=== PATIENT | male | born 1965 | race Caucasian/White ===

== ENCOUNTER → 2016-11-09 | Outpatient (CLI) | payer BC ==
--- NOTE | 2016-11-09 14:03 | EST ---
DATE OF SERVICE: 11/09/2016 AGE: 51Y SEX: M HT: 73 WT: 260 lbs. Protocol Ceasar: Other: Stage: Dur. of Exercise: 7 minutes *Heart Rate Blood Pressure *Rest: 97 Rest: 140/91 * *Max. Achieved: 148 Maximum BP: 206/88 85% PMHR: 145 100% PMHR: 170 *METS: 7.8 INDICATIONS: Chest pain. MEDICATIONS: Benicar, Amlodipine. 51-year-old gentleman history of ablation done in the past. History of palpitations, hypertension and history of smoking 1/2 pack of cigarettes daily. Patient is on Benicar and amlodipine for blood pressure and denies any chest pain or pressure. Resting ECG shows sinus rhythm, rate of 97 beats per minute. ( ) 0.16, ( ) 0.08. Normal ST-T waves. Utilizing a standard Ceasar protocol, a symptom limited treadmill test was performed. Patient exercised for total of 7 minutes, attained a peak heart rate of 148 beats per minute, which is approximately 87% predicted maximum heart rate without any chest pain, but associated with shortness of breath and fatigue. No ST segment deviations indicative of ischemia are noted at this 87% predicted heart rate. IMPRESSION: 1. Baseline rhythm is sinus with normal ( ) QRS, normal ST-T waves. 2. Negative exercise treadmill test at 87% predicted maximal heart rate. 3. Patient has below average level of cardiopulmonary fitness as indicated by ( ) and METs. 4. Patient attained peak metabolic activity equivalent to 8 METs.
== END | disposition home or self-care (01) ==
LOC: RADNMMAIN 09:22
PROVIDERS: ATTEND Internal Medicine
DX: I20.9 Angina pectoris, unspecified (principal)
CPT/HCPCS: 93017

== ENCOUNTER → 2018-04-28 | Outpatient (CLI) | payer BC ==
--- NOTE | 2018-04-28 18:44 | XR ---
EXAMINATION TYPE: XR foot limited LT DATE OF EXAM: 04/28/2018 COMPARISON: NONE HISTORY: Diabetes TECHNIQUE: 2 views FINDINGS: There are plantar and Achilles calcaneal spurs. Metatarsals are intact. There is minor spur ring at the first MP joint. There are no erosions. IMPRESSION: Calcaneal spurring. No fracture seen.
== END | disposition home or self-care (01) ==
LOC: RADXRMAIN 16:38
PROVIDERS: ATTEND Podiatrist
DX: M77.32 Calcaneal spur, left foot (principal); M79.604 Pain in right leg; M79.605 Pain in left leg; E13.621 Other specified diabetes mellitus with foot ulcer

== ENCOUNTER → 2018-05-04 | Outpatient (CLI) | payer BC ==
--- NOTE | 2018-05-04 15:05 | US ---
LOWER EXTREMITY VENOUS INSUFFICIENCY SIDE PERFORMED: Bilateral 1) Color flow is present and patency is documented in the following vessels. No DVT or SVT is noted . EIV Common Femoral Vein Deep Femoral Vein Femoral Vein Popliteal Vein Proximal Calf Veins Greater Saph Vein Upper Small Saph Vein 2) There is venous reflux noted at the following venous levels: none IMPRESSION: 1. No evidence for venous insufficiency at this time.
--- NOTE | 2018-05-08 10:36 | P.ARTDOP ---
Arterial Doppler LOWER EXTREMITY ARTERIAL DOPPLER: DATE OF SERVICE: 05/04/2018 Reason for study: Left foot ulcer. Doppler waveforms: Multiphasic bilaterally throughout. Pulse volume recording: Normal configuration. Pressure gradients: Mild gradient above the ankle on the right Ankle-brachial indices: 0.86 on the right and greater than 1 on the left. Toe pressures: 59 on the right, 94 on the left Impression: Mild right SFA disease. Left side is normal. Perfusion should be adequate for healing..
== END | disposition home or self-care (01) ==
LOC: RADUSWWP 13:32
PROVIDERS: ATTEND Podiatrist
DX: M79.604 Pain in right leg (principal); M79.605 Pain in left leg
CPT/HCPCS: 93923; 93970

== ENCOUNTER → 2019-01-04 | Outpatient (CLI) | payer BC ==
--- NOTE | 2019-01-04 18:31 | PN ---
PROGRESS NOTE DATE OF SERVICE: 01/04/2019 This patient is a 53-year-old gentleman who has been followed in the sleep center for treatment of obstructive sleep apnea-hypopnea syndrome. Patient successfully continues to use his CPAP equipment every night for the whole night without snoring or awakenings from sleep. [place] Sleepiness Scale today is 4. I checked information about usage of the machine. Patient is using the machine every night. Average usage is 6.6 hours. Apnea-hypopnea index is only 0.3, which is absolutely perfect. MEDICATIONS: 1. Benicar. 2. Metformin. PHYSICAL EXAMINATION: GENERAL: A pleasant patient in no distress. VITAL SIGNS: BP 140/74, HR 74, RR 16, height 6 feet 1-1/2 inches, weight 225 pounds. Body mass index 29.2, temperature 98.0, oxygen saturation at room air 97%. HEENT: PERRLA, EOMI. Evaluation of oropharynx showed tongue protrudes midline. Low position of soft palate. Mallampati III to IV. NECK: Supple. No JVD. Thyroid is not palpable. LUNGS: Clear to percussion and to auscultation. Good air exchange. No wheezing or rhonchi. HEART: S1, S2 regular. No murmurs, gallops or rubs. ABDOMEN: Soft and nontender. Bowel sounds are present. No organomegaly. EXTREMITIES: No clubbing or cyanosis. HOTEL OR MOTEL MANAGER: Awake, alert, and oriented X3. Cranial nerves 2 to 7 intact. There is no fasciculation or atrophy. noted. No focal deficits observed. IMPRESSION: 1. Obstructive sleep apnea-hypopnea syndrome. The patient has demonstrated great compliance with treatment, benefitting from treatment. 2. History of obesity. Patient has lost about 40 pounds. At present not overweight. Body mass index 29.2. 3. Hypertension. 4. History of Bywwo-Lvzdchebz-Ntdcx syndrome. 5. History of periodic limb movements. 6. Diabetes mellitus. PLAN: 1. Patient will continue to use CPAP equipment every night for the whole night. 2. Continue losing weight. 3. Sleep hygiene with regular time in bed for at least 8 hours. 4. No driving if feeling any sleepiness. 5. Prescription for all necessary CPAP supplies. 6. Because patient lost a significant amount of weight, he is a candidate for decreasing pressure in CPAP unit. Thank you very much for allowing me to participate in the management of your patient. Sincerely, Santos Bowser MD, PhD, FAASM Diplomat of [place] [employer] [place] [employer] Medical Officer of [facility] [place] MMMARQUES / RENETTA: [phone] /
== END | disposition home or self-care (01) ==
LOC: SLEEP 16:18
PROVIDERS: ATTEND Internal Medicine
DX: Z53.9 Procedure and treatment not carried out, unspecified reason (principal)

== ENCOUNTER → 2022-04-06 | Outpatient (CLI) | payer BC ==
--- NOTE | 2022-04-07 11:11 | XR ---
EXAMINATION TYPE: XR lumbar spine 2 or 3V DATE OF EXAM: 04/06/2022 COMPARISON: None HISTORY: Pain TECHNIQUE: 3 view lumbar spine FINDINGS: There are 5 lumbar-type vertebral bodies. Pedicles are intact. Disc heights are preserved. Vertebral body heights are preserved. Vascular calcifications within the aorta. IMPRESSION: 1. No acute osseous abnormality lumbar spine. 2. MRI could be performed as clinically indicated.
--- NOTE | 2022-04-07 11:12 | XR ---
EXAMINATION TYPE: XR thoracic spine 2V DATE OF EXAM: 04/06/2022 COMPARISON: None HISTORY: Pain TECHNIQUE: 3 view thoracic spine FINDINGS: There are 12 thoracic type vertebral bodies. Pedicles are intact. Spondylosis is present gr eater within the midst thoracic spine. Vertebral body heights are preserved. Disc heights appear pres erved. Alignment is unremarkable. IMPRESSION: 1. Spondylosis. 2. No acute osseous abnormality.
== END | disposition home or self-care (01) ==
LOC: RADXRMAIN 16:28
PROVIDERS: ATTEND Internal Medicine
DX: M47.814 Spondylosis without myelopathy or radiculopathy, thoracic region (principal)
CPT/HCPCS: 72070; 72100

== ENCOUNTER → 2023-09-21 | Outpatient (CLI) | payer BC ==
--- NOTE | 2023-09-21 16:00 | P.SLEEP ---
History of Present Illness DATE: 09/21/2023 CONSULTATION/NEW PATIENT EVALUATION HISTORY OF PRESENT ILLNESS/SLEEP-WAKE EVALUATION: 58 year old gentleman had been evaluated in the sleep center for the last time I saw patient in December 2018 for treatment of obstructive sleep apnea hypopnea syndrome obstructive sleep apnea hypopnea syndrome. Patient continued to use his CPAP equipment every night for the whole night. I checked his CPAP unit. CPAP pressure is 14 cm of water, usage is 100% of nights, average 7.5 hours per night, good compliance leak is 1 L/m which is perfect. Apnea hypopnea index is 0.8 which is normal. CPAP unit is old, has information that motor life expectancy was exceeded. SLEEP SCHEDULE: Usually sleep schedule from 8 PM to 3 AM on weekdays and from 10 PM to 5 AM on weekend. FALLING ASLEEP: No problems with falling asleep. DURING SLEEP: No snoring while using CPAP. No awakenings on CPAP. No history of hypnogogical hallucinations, sleep paralysis, or cataplexy. DURING THE DAY/WAKE STATE: In the morning patient may wake up and feel tiredness. [place] sleepiness scale is increased to 11. Patient may take naps on weekend when she has time. PAST MEDICAL HISTORY: Hypertension, history of Parkinson White syndrome, history of diabetes mellitus. PAST SURGICAL HISTORY: Right hand surgeries 2020. MEDICATIONS: Metoprolol 50 mg once a day, metformin 500 mg twice a day, atorvastatin 40 mg once a day, amlodipine 2.5 mg once a day. SOCIAL HISTORY: Positive for smoking for 40 years up to 2 packs a day continue to smoke, alcohol consumption occasional. FAMILY HISTORY: Hypertension, diabetes. REVIEW OF SYSTEMS: Feeling tiredness and sleepiness in the morning after awakenings from sleep. No fevers. No double vision. No recent chest pain. No shortness of breath. No abdominal pain. No bleeding episodes. No blood in urine. No seizure episodes. PHYSICAL EXAMINATION: GENERAL: A pleasant patient without any distress. VITAL SIGNS: BP 148/86, HR 75, RR 18, weight 248.8 pounds, height 6 foot one quarter inches, body mass index 33.4. HEENT: PERRLA, EOMI. Evaluation of oropharynx showed tongue protrudes midline, low position of soft palate Mallampati 4. NECK: Supple. No JVD. Thyroid is not palpable. 20 inches in circumference. LUNGS: Clear to percussion and to auscultation. Good air exchange. No wheezing o r rhonchi. HEART: S1, S2 regular. No murmurs, gallops or rubs. ABDOMEN: Soft and nontender. Bowel sounds are present. No organomegaly appreciated. EXTREMITIES: No clubbing or cyanosis. BLOOD BANK BOOKING CLERK: Awake, alert, and oriented x3. Cranial nerves 2 to 7 intact. There is no fasciculation or atrophy noted. No focal deficits observed. ASSESSMENT: 1. Obstructive sleep apnea hypopnea syndrome for many years. Patient continued to use his CPAP equipment every night for the whole night. Normal respiration according to data from the CPAP unit. Extremely low soft palate, extremely wide neck. 2. Mild obesity BMI 33.4. 3. Hypertension. 4. Diabetes mellitus. 5 history of [place]- Parkinson -White syndrome. 6 . Hyperlipidemia. 7. Status post right hand surgery in 2020. PLAN: 1. Prescription to replace CPAP unit with AutoPAP with range of pressure 10-16 cm of water. 2. Follow-up visit in 30-90 days after patient will get new CPAP unit to leg clinical response on treatment, compliance with treatment and make an necessary adjustments related to mask fitting pressure and humidification. 3. Preferable position during sleep on the side. 4. No driving if patient feels any sleepiness. Patient is aware of civil and criminal liability for unsafe driving. 5. Sleep hygiene with regular sleep time for at least 7.5-8 hours. 6. Watching and losing weight. Thank you very much for referring this patient for consultation. Sincerely, Santos Bowser MD, PhD, FAASM. Diplomat of [employer] [place] [employer], Sleep Medicine Board by [place] [employer] [place] [employer] Systems Consultant of [facility] [place] Past Medical History Past Medical History: Diabetes Mellitus, Hypertension, Skin Disorder, Sleep Apnea/CPAP/BIPAP Additional Past Medical History / Comment(s): HX TRAN PARKINSON WHITE SYNDROME. WOUND BOTTOM LT FOOT. USES CPAP. History of Any Multi-Drug Resistant Organisms: None Reported Past Surgical History: Cardiac Ablation Past Anesthesia/Blood Transfusion Reactions: No Reported Reaction Additional Past Anesthesia/Blood Transfusion Reaction / Comment(s): ADOPTED, NO KNOWN FAM HX Past Psychological History: No Psychological Hx Reported Past Alcohol Use History: Daily Additional Past Alcohol Use History / Comment(s): SMOKER SINCE 1977 EST, 1 - 1 1/2 PPD. DRINKS 6 PACK DAILY Past Drug Use History: None Reported - Past Family History Mother Family Medical History: Unable to Obtain Father History Unknown: Yes Medications and Allergies Home Medications Medication Instructions Recorded Confirmed Type Olmesartan Medoxomil [Benicar] 40 mg PO DAILY 04/27/18 05/19/18 History amLODIPine BESYLATE [Norvasc] 2.5 mg PO DAILY 04/27/18 05/19/18 History metFORMIN HCL [Glucophage] 500 mg PO TID 04/27/18 05/19/18 History Allergies Allergy/AdvReac Type Severity Reaction Status Date / Time No Known Allergies Allergy Verified 05/19/18 13:12 Sleep Note - Sleep Note Sleep Note: Temperature: Pulse Rate: Respiratory Rate: Blood Pressure: SpO2: Height: Weight: BMI: Neck Circumference:
== END ==
LOC: 3 N SLEEP 15:20
PROVIDERS: ATTEND Internal Medicine
DX: G47.33 Obstructive sleep apnea (adult) (pediatric) (principal); E66.9 Obesity, unspecified; I10 Essential (primary) hypertension; E11.9 Type 2 diabetes mellitus without complications; E78.5 Hyperlipidemia, unspecified; F17.200 Nicotine dependence, unspecified, uncomplicated; I45.6 Pre-excitation syndrome; Z68.33 Body mass index [BMI] 33.0-33.9, adult; Z98.890 Other specified postprocedural states; Z79.899 Other long term (current) drug therapy; Z79.84 Long term (current) use of oral hypoglycemic drugs
CPT/HCPCS: 99211

== ENCOUNTER → 2023-11-30 | Outpatient (CLI) | payer BC ==
--- NOTE | 2023-11-30 17:34 | P.PN ---
Subjective DATE: 11/30/2023 FOLLOW UP VISIT. Patient with obstructive sleep apnea hypopnea syndrome return to sleep center for follow-up visit. Information from previous visit have been reviewed. This is first visit after patient received new CPAP unit for replacement of old unit. Patient is using PAP equipment every night for the whole night, getting PAP supplies in time. The patient does not have significant problems with the mask, PAP unit and humidification. [place] sleepiness scale is 9, which is borderline. I checked information from PAP unit. PAP unit pressure 10-16, average 14.4 cm H2O. Usage is 100 % for more then 4 hours, average 7.8 hours per night. Leak is 14.4 l/m, which is in acceptable range. Apnea Hypopnea Index is 0.8, which is normal. MEDICATIONS:1. Metoprolol 50 mg once a day 2. Metformin 500 mg twice a day 3. Atorvastatin 40 mg once a day 4. Amlodipine 2.5 mg once a day During physical exam: GENERAL: A pleasant patient without any distress. VITAL SIGNS: BP 168/91, HR 89, RR 12, weight 251.0, temperature 98.1, oxygen saturation at room air 98 % . HEENT: PERRLA, EOMI.low position of soft palate, Mallapati 4 . NECK: Supple. No JVD. LUNGS: Clear to percussion and to auscultation. Good air exchange. No wheezing or rhonchi. HEART: S1, S2 regular. ABDOMEN: Soft and nontender.[] EXTREMITIES: No clubbing or cyanosis. INTERNATIONAL BANK MANAGER: Awake, alert, and oriented x3. No focal deficit. Impressions: 1. Obstructive sleep apnea-hypopnea syndrome. Patient demonstrated great compliance with treatment, benefiting from treatment. 2. Very mild obesity, patient lost 3 pounds since previous visit. 3. Hypertension. 4. Diabetes mellitus. 5. History of WPW syndrome. 6. Hyperlipidemia. 7. Status post right hand surgery in 2020. Plan: 1. Continue using PAP equipment every night for the whole night. 2. To change air filter at least 1-2 times per month. 3. PAP unit should stay lower then position of the head. 4. Advised patient to remove all remaining water from humidifier canister daily and make it dry after each usage. Refill canister with fresh distilled water before each usage. 5. Sleep hygiene with regular time in bed for at least 8 hours. 6. Precautions related to driving. No driving if feel any sleepiness. 7. I will maintain prescription for PAP supplies including mask, tube, filters. 8. Follow up visit in 6 months or earlier if patient has any problems. 9. Watching weight. Thank you very much for allowing me to participate in the management of your patient. Santos Bowser MD, PhD, FAASM. Diplomat of [place] [employer], Sleep Medicine Board by [place] [employer] Mushroom Packer of [facility] [place]
== END ==
LOC: 3 N SLEEP 14:27
PROVIDERS: ATTEND Internal Medicine
DX: G47.33 Obstructive sleep apnea (adult) (pediatric) (principal); E66.9 Obesity, unspecified; I10 Essential (primary) hypertension; E11.9 Type 2 diabetes mellitus without complications; F17.200 Nicotine dependence, unspecified, uncomplicated; E78.5 Hyperlipidemia, unspecified; Z79.84 Long term (current) use of oral hypoglycemic drugs; Z79.899 Other long term (current) drug therapy; Z99.89 Dependence on other enabling machines and devices; Z98.890 Other specified postprocedural states; Z86.79 Personal history of other diseases of the circulatory system
CPT/HCPCS: 99212

== ENCOUNTER → 2024-06-28 | Outpatient (CLI) | payer BC | LOC: 3 N SLEEP 15:30 | PROVIDERS: ATTEND Internal Medicine | CPT/HCPCS: 99212 ==